=== PATIENT | female | born 1970 | race Caucasian/White ===

== ENCOUNTER → 2018-11-22 | Outpatient (CLI) | payer OTHER | END | disposition home or self-care (01) | LOC: CFH 08:21 | PROVIDERS: ATTEND Obstetrics & Gynecology Gynecology | DX: Z12.31 Encounter for screening mammogram for malignant neoplasm of breast (principal) | CPT/HCPCS: 77063; 77067 ==

== ENCOUNTER → 2020-02-12 | Outpatient (CLI) | payer OTHER | END | disposition home or self-care (01) | LOC: CFH 07:42 | PROVIDERS: ATTEND Obstetrics & Gynecology Gynecology | DX: Z12.31 Encounter for screening mammogram for malignant neoplasm of breast (principal) | CPT/HCPCS: 77063; 77067 ==